=== PATIENT | male | born 1950 | race Caucasian/White ===

== ENCOUNTER → 2023-06-27 17:30 | Outpatient (REF) | payer MEDICARE, SELFPAY | LOC: MRI 17:30 | PROVIDERS: ATTENDING PHYSICIAN Physical Medicine & Rehabilitation | DX: M54.16 Radiculopathy, lumbar region (principal) | CPT/HCPCS: 72148 ==

== ENCOUNTER → 2024-03-06 07:13 | Outpatient (REF) | payer MEDICARE, SELFPAY | LOC: HWRAD 07:13 | PROVIDERS: ATTENDING PHYSICIAN Ophthalmology; FAMILY PHYSICIAN Physician Assistant Medical | DX: H34.231 Retinal artery branch occlusion, right eye (principal) | CPT/HCPCS: 93880 ==